=== PATIENT | male | born 1970 | race Caucasian/White ===

== ENCOUNTER → 2020-03-12 | Outpatient (CLI) | payer SELFPAY | LOC: YCFC.O 10:01 | PROVIDERS: ATTEND Family Medicine | DX: R53.83 Other fatigue (principal); R03.0 Elevated blood-pressure reading, without diagnosis of hypertension; R81 Glycosuria; R80.9 Proteinuria, unspecified; Z13.220 Encounter for screening for lipoid disorders ==

== ENCOUNTER → 2020-06-20 | Outpatient (CLI) | payer SELFPAY | LOC: YCFC.O 09:24 | PROVIDERS: ATTEND Family Medicine | DX: E11.65 Type 2 diabetes mellitus with hyperglycemia (principal); E78.5 Hyperlipidemia, unspecified; R74.8 Abnormal levels of other serum enzymes ==